=== PATIENT | female | born 1960 | race Caucasian/White ===

== ENCOUNTER 2016-07-20 08:11 | Day surgery (SDC) | payer OTHER, BC ==
[2016-07-18 12:24] VITALS: BMI 29.2
[2016-07-20] MEDS ORDERED: PROPOFOL 20 ML ONE ×2 (08:17)
[2016-07-20] MEDS ORDERED: LIDOCAINE HCL/PF 2% SDV 5ML VIAL ONE (08:18)
[2016-07-20 10:07] VITALS: BP 126/77; PULSE 71; TEMP 97.9
--- NOTE | 2016-07-22 08:51 | PATH ---
Surgical Pathology Report Patient Name: HECTOR FORBES [facility]. Rec. #: [id number] /Age/Gender: 1960 (Age: 55) / F Account: [id number] Location: [facility]OS[facility] Taken: 07/20/2016 Received: 07/20/2016 Reported: 07/22/2016 Physicians: Andrade Dillard M.D. Specimen(s) Received A: BX DUODENUM B: BX ANTRUM C: BX LOWER ESOPHAGUS Clinical History GERD, rule out colon cancer Rule out celiac disease, gastritis, rule out Olsen's Final Diagnosis A. DUODENUM, BIOPSY: DUODENAL MUCOSA WITH NO PATHOLOGIC CHANGES. NO HISTOLOGIC EVIDENCE OF GLUTEN SENSITIVE ENTEROPATHY (CELIAC SPRUE) IDENTIFIED. B. STOMACH, ANTRUM, BIOPSY: GASTRIC ANTRAL MUCOSA WITH NO PATHOLOGIC CHANGES. IMMUNOSTAIN FOR H. PYLORI IS NEGATIVE. C. LOWER ESOPHAGUS, BIOPSY: SQUAMOUS EPITHELIUM WITH MILD PAPILLOMATOSIS SUGGESTIVE OF REFLUX ESOPHAGITIS. NO INTESTINAL METAPLASIA IDENTIFIED (NO OLSEN'S IDENTIFIED). Electronically Signed Dragan Banks M.D. Gross Description A. Received in formalin, labeled "duodenum" are 2 dc, irregular portions of soft tissue averaging 0.3 cm. in greatest dimension. The specimens are submitted in toto in one cassette. B. Received in formalin, labeled "antrum" are 2 dc, irregular portions of soft tissue measuring 0.4 and 0.5 cm. in greatest dimension. The specimens are submitted in toto in one cassette. C. Received in formalin, labeled "lower esophagus" are 2 dc, irregular portions of soft tissue averaging 0.1 cm. in greatest dimension. The specimens are submitted in toto in one cassette. 07/20/201607/20/2016
== END 2016-07-20 10:05 | disposition home or self-care (01) ==
LOC: FASU-ENDO 08:11
PROVIDERS: ATTEND Internal Medicine Gastroenterology
PROC: 0DB68ZX Excision of Stomach, Via Natural or Artificial Opening Endoscopic, Diagnostic (ICD-10-PCS; 2016-07-20)
PROC: 0DB38ZX Excision of Lower Esophagus, Via Natural or Artificial Opening Endoscopic, Diagnostic (ICD-10-PCS; 2016-07-20)
PROC: 0DB48ZX Excision of Esophagogastric Junction, Via Natural or Artificial Opening Endoscopic, Diagnostic (ICD-10-PCS; 2016-07-20)
PROC: 0D748DZ Dilation of Esophagogastric Junction with Intraluminal Device, Via Natural or Artificial Opening Endoscopic (ICD-10-PCS; 2016-07-20)
PROC: 0DJD8ZZ Inspection of Lower Intestinal Tract, Via Natural or Artificial Opening Endoscopic (ICD-10-PCS; principal; 2016-07-20 08:53)
PROC: 0DB98ZX Excision of Duodenum, Via Natural or Artificial Opening Endoscopic, Diagnostic (ICD-10-PCS; 2016-07-20 08:53)
DX: Z12.11 Encounter for screening for malignant neoplasm of colon (principal); K64.8 Other hemorrhoids; K21.9 Gastro-esophageal reflux disease without esophagitis; K22.2 Esophageal obstruction; K44.9 Diaphragmatic hernia without obstruction or gangrene
CPT/HCPCS: 43239; 43450; G0121; 88305-TC; 88342-TC

== ENCOUNTER 2018-12-09 17:10 | Emergency (ER) | payer OTHER, BC ==
[2018-12-09 17:26] VITALS: BP 144/96; PULSE 93; TEMP 98.1; BMI 29.2
[2018-12-09] MEDS ORDERED: FAMOTIDINE 20 MG TABLET PO ONE (17:33)
[2018-12-09] MEDS ORDERED: diphenhydrAMINE HCL 25 MG CAPSULE (FP) PO ONE ×2 (17:33→17:37)
[2018-12-09] MEDS ORDERED: FAMOTIDINE 20 MG TABLET ONE (17:38)
[2018-12-09] MEDS ORDERED: diphenhydrAMINE HCL 12.5 MG/5 ML BULK BOTTLE ONE (17:43)
--- NOTE | 2018-12-09 18:14 | PDOC ---
Documentation entered by Felicita Suero SCRIBE, acting as scribe for Genevieve Bae MD. Genevieve Bae MD: This documentation has been prepared by the Nimo barnard Nirvannie, SCRIBE, under my direction and personally reviewed by me in its entirety. I confirm that the documentation accurately reflects all work, treatment, procedures, and medical decision making performed by me. History of Present Illness - General Chief Complaint: Allergic Reaction Stated Complaint: ALLERGIC REACTION History Source: Patient Exam Limitations: No Limitations - History of Present Illness Initial Comments: 12/09/18 18:05 The patient is a 58 year old female, with a significant past medical history of idiopathic angioedema (on 5mg Prednisone as needed), hypothyroidism, and GERD, who presents to the emergency department with, difficulty swallowing and angioedema to the lips. As per patient, she was at a restaurant drinking water at which time she began to have difficulty swallowing. She notes taking 5mg of Prednisone without relief, prompting his arrival to the ED. While in the ED, she notes her difficulty swallowing has persisted but, angioedema to the lips has mildly resolved. She denies recent chest pain or shortness of breath. She denies recent fevers, chills, headache or dizziness. She denies recent nausea, vomiting, diarrhea, or constipation. She denies recent dysuria, frequency, urgency, or hematuria. Allergies: Penicillins. Past History - Past Medical History Allergies/Adverse Reactions: Allergies Allergy/AdvReac Type Severity Reaction Status Date / Time Penicillins Allergy Intermediate Rash Verified 12/09/18 17:14 PHYSICAL PRESSURE Allergy Severe ANGIOEDEMA Uncoded 12/09/18 17:14 Home Medications: Ambulatory Orders Atenolol [Tenormin -] 25 mg PO DAILY 01/02/15 Estradiol/Norethindrone Acet [Estradiol-Noreth 1-0.5 mg Tab] 1 each PO DAILY Levothyroxine [Synthroid -] 25 mcg PO DAILY 01/02/15 Methadone [Dolophine -] 50 mg PO ASDIR 01/02/15 Omeprazole 20 mg PO DAILY 07/18/16 Prednisone 10 mg PO DAILY 07/20/16 Anemia: No Asthma: No Cancer: No Cardiac Disorders: No CVA: No COPD: No CHF: No Dementia: No Diabetes: No GI Disorders: Yes (GERD) Disorders: Yes (FREQUENCY) HTN: Yes Hypercholesterolemia: No Liver Disease: No Seizures: No Thyroid Disease: Yes (HYPOTHYROIDISM) - Surgical History Abdominal Surgery: No Appendectomy: No Cardiac Surgery: No Cholecystectomy: No Lung Surgery: No Neurologic Surgery: No Orthopedic Surgery: No - Suicide/Smoking/Psychosocial Hx Smoking History: Never smoked Hx Alcohol Use: Yes Drug/Substance Use Hx: No Substance Use Type: None Hx Substance Use Treatment: No Review of Systems - Review of Systems Able to Perform ROS?: Yes Comments:: 12/09/18 18:06 GENERAL/CONSTITUTIONAL: No fever or chills. No weakness. HEAD, EYES, EARS, NOSE AND THROAT: No change in vision. No ear pain or discharge. CARDIOVASCULAR: No chest pain or shortness of breath. RESPIRATORY: No cough, wheezing, or hemoptysis. GASTROINTESTINAL: No nausea, vomiting, diarrhea or constipation. GENITOURINARY: No dysuria, frequency, or change in urination. MUSCULOSKELETAL: No joint or muscle swelling or pain. No neck or back pain. SKIN: No rash. NEUROLOGIC: No headache, vertigo, loss of consciousness, or change in strength/ sensation. ENDOCRINE: No increased thirst. No abnormal weight change. HEMATOLOGIC/LYMPHATIC: No anemia, easy bleeding, or history of blood clots. ALLERGIC/IMMUNOLOGIC: +Difficulty swallowing. +Angioedema to the lips. All Other Systems: Reviewed and Negative *Physical Exam - Vital Signs Last Vital Signs Temp Pulse Resp BP Pulse Ox 98.1 F 93 H 18 144/96 99 12/09/18 17:10 12/09/18 17:10 12/09/18 17:10 12/09/18 17:10 12/09/18 17:10 - Physical Exam Comments: 12/09/18 17:14 GENERAL: Awake, alert, and fully oriented, in no acute distress HEAD: No signs of trauma EYES: PERRLA, EOMI, sclera anicteric, conjunctiva clear ENT: Auricles normal inspection, hearing grossly normal, nares patent, oropharynx clear without exudates. Moist mucosa NECK: Normal ROM, supple, no lymphadenopathy, JVD, or masses LUNGS: Breath sounds equal, clear to auscultation bilaterally. No wheezes, and no crackles HEART: Regular rate and rhythm, normal S1 and S2, no murmurs, rubs or gallops ABDOMEN: Soft, nontender, normoactive bowel sounds. No guarding, no rebound. No masses EXTREMITIES: Normal range of motion, no edema. No clubbing or cyanosis. No cords, erythema, or tenderness NEUROLOGICAL: Cranial nerves II through XII grossly intact. Normal speech, normal gait. Motor and sensation intact SKIN: Warm, Dry, normal turgor, no rashes or lesions noted Medical Decision Making - Medical Decision Making 12/09/18 17:35 Pt with no visible swelling to the lips, mouth, or posterior oropharynx. Normal phonation. She declines to take additional prednisone, saying that "higher doses " give her side effects (20 mg or more). Will give H1 and H2 henry and monitor. 12/09/18 19:00 Pt continues to have no visible swelling. Normal phonation. She states she still has the sensation at the base of her throat. Will obtain soft tissue neck XR and cont to monitor. *DC/Admit/Observation/Transfer - Discharge Dispostion Condition at time of disposition: Stable Decision to Admit order: No - Referrals - Patient Instructions Printed Discharge Instructions: DI for Angioedema, DI for General Allergic Reactions - Post Discharge Activity
[2018-12-09] MEDS ORDERED: predniSONE 10 MG TABLET (UD) PO ONE (18:39)
[2018-12-09] MEDS ORDERED: predniSONE 10 MG TABLET (UD) ONE (18:41)
--- NOTE | 2018-12-09 19:48 | PDOC ---
*Physical Exam - Vital Signs Last Vital Signs Temp Pulse Resp BP Pulse Ox 98.1 F 93 H 18 144/96 99 12/09/18 17:10 12/09/18 17:10 12/09/18 17:10 12/09/18 17:10 12/09/18 17:10 - Physical Exam Neck: positive: Trachea midline, Other (no stridor, normal phonation) ED Treatment Course - Medications Given in the ED: ED Medications Discontinued Medications Generic Name Dose Route Start Last Admin Trade Name Bj PRN Reason Stop Dose Admin Diphenhydramine HCl 25 mg 12/09/18 17:33 12/09/18 17:44 Benadryl - PO 12/09/18 17:34 25 mg ONCE ONE Administration Famotidine 20 mg 12/09/18 17:33 12/09/18 17:42 Pepcid - PO 12/09/18 17:34 20 mg ONCE ONE Administration Prednisone 10 mg 12/09/18 18:39 12/09/18 18:45 Deltasone - PO 12/09/18 18:40 10 mg ONCE ONE Administration Medical Decision Making - Medical Decision Making 12/10/18 06:45 Asked to follow-up neck x-ray patient with history of idiopathic angioedema with very slight subjective lip swelling and a sore sensation in throat but no difficulty breathing swallowing Repeat examination no stridor no uvula edema no lip swelling no tongue swelling voice is normal x-ray with no evidence of soft tissue edema Findings discussed length with patient patient discomfort we'll returning home on prednisone prescription given for EpiPen Findings, need for follow-up and strict return instructions discussed patient. *DC/Admit/Observation/Transfer Diagnosis at time of Disposition: Throat irritation - Discharge Dispostion Disposition: HOME Condition at time of disposition: Stable Decision to Admit order: No - Prescriptions Prescriptions: Epinephrine [Epipen] 0.3 mg IJ PRN #1 auto.injct Prednisone 5 mg PO DAILY 3 Days tab.ds.pk - Referrals - Patient Instructions Printed Discharge Instructions: DI for Angioedema, DI for General Allergic Reactions Additional Instructions: Prednisone as prescribed. Take pepcid daily otc, 20mg for 3 days. EpiPen for life-threatening swelling. Return to ED immediately for any severe worsening symptoms or for any concerns. - Post Discharge Activity
== END 2018-12-09 20:00 | disposition home or self-care (01) ==
LOC: FER 17:10
DX: T78.40XA Allergy, unspecified, initial encounter (principal); K21.9 Gastro-esophageal reflux disease without esophagitis; I10 Essential (primary) hypertension; E03.9 Hypothyroidism, unspecified
CPT/HCPCS: 70360-TC-FY; 99284-25

== ENCOUNTER → 2019-08-01 | Day surgery (SDC) | payer OTHER, BC ==
--- NOTE | 2019-08-02 18:36 | PATH ---
Surgical Pathology Report Patient Name: HECTOR FORBES [facility]. Rec. #: [id number] /Age/Gender: 1960 (Age: 58) / F Account: [id number] Location: [facility] Taken: 08/01/2019 Received: 08/01/2019 Reported: 08/02/2019 Physicians: Gilbert Tavarez M.D. Specimen(s) Received A: LEFT BREAST SPECIMEN WITH CALCIFICATIONS B: LEFT BREAST SPECIMEN WITHOUT CALCIFICATIONS Clinical History Nonpalpable lesion Mammographic findings: Microcalcification, suspicious Final Diagnosis A. LEFT BREAST SPECIMEN WITH CALCIFICATIONS, STEREOTACTIC CORE BIOPSY: BREAST TISSUE WITH ATYPICAL DUCTAL HYPERPLASIA (ADH), FLAT EPITHELAL ATYPIA, COLUMNAR CELL CHANGE, AND ASSOCIATED MICROCALCIFICATIONS. B. LEFT BREAST SPECIMEN WITHOUT CALCIFICATIONS, STEREOTACTIC CORE BIOPSY: BREAST TISSUE WITH STROMAL FIBROSIS. Electronically Signed Kayla Salas M.D. Gross Description A. Received in formalin labeled "left breast with calcifications," are 3 dc-yellow, cylindrical portions of fibroadipose tissue ranging from 3.0-3.5 cm in length and averaging 0.2 cm in diameter. The specimens are submitted in toto in one cassette. B. Received in formalin labeled "left breast without calcifications," are 5 dc-yellow, cylindrical portions of fibroadipose tissue ranging from 1.8-3.6 cm in length and averaging 0.3 cm in diameter. The specimens are submitted in toto in 2 cassettes. Time to formalin fixation: 5 minutes Total formalin fixation time: Approximately 7 hours. 08/01/201908/01/2019
== END | disposition home or self-care (01) ==
LOC: FMAMMOTONE 09:43
PROVIDERS: ATTEND Obstetrics & Gynecology
PROC: 0HBU3ZX Excision of Left Breast, Percutaneous Approach, Diagnostic (ICD-10-PCS; principal; 2019-08-01)
DX: N60.92 Unspecified benign mammary dysplasia of left breast (principal); N64.89 Other specified disorders of breast; R92.1 Mammographic calcification found on diagnostic imaging of breast
CPT/HCPCS: 19081; 76098-TC-FY; 87899; 88305-TC; A4648

== ENCOUNTER 2022-01-22 10:28 | Emergency (ER) | payer OTHER, BC ==
[2022-01-22 10:45] VITALS: BP 185/108; PULSE 85; RESP 16; TEMP 99.6; BMI 25.4
[2022-01-22 11:41] LABS: HEMATOCRIT 38.3 % (32.4-45.2); HEMOGLOBIN 13.3 G/dL (10.7-15.3); MCH 31.7 pg (25.7-33.7); MCHC 34.8 g/dl (32.0-36.0); MEAN PLT VOLUME 7.3 fl (7.5-11.1); PLATELET COUNT 241.2 10^3/uL (134-434); RBC 4.21 10^6/uL (3.60-5.2); RDW 14.2 % (11.6-15.6); WHITE BLOOD COUNT 4.3 10^3/uL (4.0-10.8)
[2022-01-22 11:45] LABS: PLATELET ESTIMATE ADEQUATE
[2022-01-22 11:50] LABS: ALBUMIN 3.8 g/dl (3.4-5.0); BILIRUBIN,TOTAL 0.7 mg/dl (0.2-1); CALCIUM 9.6 mg/dl (8.5-10); CREATININE 0.8 mg/dl (0.55-1.3); TOT PROT 6.6 g/dl (6.4-8.2)
[2022-01-22 12:38] LABS: EPITHELIAL CELLS RARE /hpf
== END 2022-01-22 13:35 | disposition home or self-care (01) ==
LOC: FER 10:28
DX: R10.9 Unspecified abdominal pain (principal)
CPT/HCPCS: 36415; 80053; 81003; 81015; 85025; 87086; 99283-25

== ENCOUNTER 2023-05-10 08:00 | Day surgery (SDC) | payer OTHER, BC ==
[2023-05-05 10:51] VITALS: BMI 23.4
[2023-05-10 08:25] VITALS: RESP 18; TEMP 97
[2023-05-10 10:30] VITALS: BP 121/68; PULSE 83
== END 2023-05-10 11:05 | disposition home or self-care (01) ==
LOC: FASU-ENDO 08:00
PROVIDERS: ATTEND Internal Medicine Gastroenterology
PROC: 0DBL8ZX Excision of Transverse Colon, Via Natural or Artificial Opening Endoscopic, Diagnostic (ICD-10-PCS; 2023-05-10)
PROC: 0DBK8ZX Excision of Ascending Colon, Via Natural or Artificial Opening Endoscopic, Diagnostic (ICD-10-PCS; principal; 2023-05-10 09:55)
DX: R93.3 Abnormal findings on diagnostic imaging of other parts of digestive tract (principal); D12.2 Benign neoplasm of ascending colon; D12.3 Benign neoplasm of transverse colon; R10.31 Right lower quadrant pain
CPT/HCPCS: 88305-TC

== ENCOUNTER 2024-04-01 11:49 | Emergency (ER) | payer OTHER, BC ==
[2024-04-01 12:06] VITALS: BP 147/78; PULSE 62; RESP 20; TEMP 98.2; BMI 23.6
[2024-04-01] MEDS ORDERED: ACETAMINOPHEN 325 MG TABLET (FP) ONE (12:51)
[2024-04-01] MEDS ORDERED: ACETAMINOPHEN 650 MG/20.3 ML ORAL SOLUTION (CUPS) ONE (12:54)
[2024-04-01] MEDS: ACETAMINOPHEN 325 MG TABLET (FP) PO ONE (13:19)
[2024-04-01] MEDS: SODIUM CHLORIDE 0.9% 500 ML INFUS.BAG IV ONE (13:19)
[2024-04-01 14:04] LABS: HEMOGLOBIN 13.2 G/dL (10.7-15.3); MCH 30.8 pg (25.7-33.7); MCHC 32.2 g/dl (32.0-36.0); MEAN CELL VOLUME 95.8 fl (80-96); MEAN PLT VOLUME 7.8 fl (7.5-11.1); PLATELET COUNT 245.7 10^3/uL (134-434); RBC 4.28 10^6/uL (3.60-5.2); RDW 13.9 % (11.6-15.6); WHITE BLOOD COUNT 4.6 10^3/uL (4.0-10.8)
[2024-04-01 14:16] LABS: ALBUMIN 4.3 g/dl (3.4-5.0); ALK PHOS 52 U/L (45-117); ANION GAP 5 mmol/L (4-13); BILIRUBIN,TOTAL 0.5 mg/dl (0.2-1); CALCIUM 10.2 mg/dl (8.5-10.1); CHLORIDE 106 mmol/L (98-107); CO2 31 mmol/L (21-32); CREATININE 0.8 mg/dl (0.6-1.3); GLUCOSE,RANDOM 127 mg/dl (74-106); MAGNESIUM 1.8 mg/dL (1.8-2.4); POTASSIUM 3.8 mmol/L (3.5-5.1); SGOT/AST 16 U/L (15-37); SGPT/ALT 9 U/L (7-52); SODIUM 142 mmol/L (136-145); TOT PROT 6.6 g/dl (6.4-8.2)
[2024-04-01 14:45] LABS: PLATELET ESTIMATE ADEQUATE
[2024-04-01] MEDS ORDERED: IBUPROFEN 400 MG TABLET (FP) PO ONE (15:01)
[2024-04-01] MEDS: IBUPROFEN 400 MG TABLET (FP) PO ONE (15:05)
[2024-04-01] MEDS ORDERED: KETOROLAC TROMETHAMINE 15 MG/ML VIAL ONE (15:05)
[2024-04-01] MEDS: KETOROLAC TROMETHAMINE 15 MG/ML VIAL IVPUSH ONE (15:10)
[2024-04-01 15:50] LABS: EPITHELIAL CELLS 0-5 /hpf
== END 2024-04-01 16:30 | disposition home or self-care (01) ==
LOC: FER 11:49
PROC: 3E0333Z Introduction of Anti-inflammatory into Peripheral Vein, Percutaneous Approach (ICD-10-PCS; principal; 2024-04-01)
DX: R10.31 Right lower quadrant pain (principal)
CPT/HCPCS: 36415; 74177-TC; 80053; 81003; 81015; 83735; 85027; 87086; 99285-25; Q9967